=== PATIENT | female | born 2000 | race Caucasian/White ===

== ENCOUNTER 2024-12-04 10:03 | Outpatient (AMB) | payer OTHER, SELFPAY ==
--- NOTE | 2024-12-04 10:03 | MHC.OFFVIS ---
Vital Signs 12/04/24 10:11 Height 5 ft 4 in Weight 145 lb BMI 24.9 BP 142/81 H Blood Pressure Location Rt brachial Position Sitting Pulse 68 Intake Visit Reasons: worsening pain unilateral inguinal hernia Intake Note: Patient referred by pcp Dr. Fuad Power for Unilateral inguinal hernia. Patient c/o: worsening pain on LLQ. Lump first noticed 2yrs ago. Lt leg feels numb. Reports shooting pain down leg. Was told this might be related to thyroid. 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 He is increasing over the last several months and it has become more symptomatic. She was recently seen emergency department and presents here for further evaluation. She otherwise tolerating a diet. She has regular bowel habits. Patient was fairly active. Chart was reviewed and patient evaluated [facility] Medical History (Updated 12/04/24 @ 10:09 by TORSTEN Ghosh) HTN in , chronic Surgical History (Updated 12/04/24 @ 10:23 by Jf Gilliam MD) [place] teeth extracted Social History (Updated 12/04/24 @ 10:09 by TORSTEN Ghosh) Alcohol intake: never Patient Tobacco Use Status: Never used Tobacco Physical Exam Vital Signs: Last Vital Signs Pulse 68 12/04/24 10:11 BP 142/81 H 12/04/24 10:11 BMI result Body Mass Index 24.9 Chest Other: Chest breath sounds bilaterally, HS 1 in 2 GI Other: Patient was examined both supine and standing with Valsalva. Abdomen soft, moderately corpulent, benign. Striae. Right groin negative. Left groin demonstrates a reducible left femoral hernia. No evidence of inguinal hernia. Assessment & Plan Assessment & Plan (1) Left femoral hernia without obstruction or gangrene: Code(s): K41.90 - Unilateral femoral hernia, without obstruction or gangrene, not specified as recurrent Category: Surgical Plan Findings were reviewed with the patient. I recommend she undergo repair of this femoral hernia because of the potential risk for incarcerated and strangulation at these hernias on notorious for. Risks, benefits, alternatives of the procedure (left open femoral hernia repair with mesh) reviewed with the patient and included but not limited to bleeding, infection, recurrence, numbness, pain, scarring the patient wished to proceed. All questions answered. Arrangements were made for this on a day which is convenient for her. Coding Level of Care Code New Pt Level 5 (88575) Diagnoses Left femoral hernia without obstruction or gangrene K41.90
[2024-12-04 10:11] VITALS: BP 142/81; PULSE 68; BMI 24.9
== END 2024-12-04 10:24 | disposition home or self-care (01) ==
PROVIDERS: PCP Family Medicine; Visit Provider Surgery
DX: K41.90 Unilateral femoral hernia, without obstruction or gangrene, not specified as recurrent (principal)
CPT/HCPCS: 99204

== ENCOUNTER → 2024-12-20 08:29 | Outpatient (BNV) | payer OTHER, SELFPAY | PROVIDERS: PCP Family Medicine; Visit Provider Surgery | DX: K41.90 Unilateral femoral hernia, without obstruction or gangrene, not specified as recurrent (principal) | CPT/HCPCS: 49505 ==

== ENCOUNTER 2024-12-30 10:39 | Outpatient (AMB) | payer OTHER, SELFPAY ==
--- NOTE | 2024-12-30 10:44 | MHC.OFFVIS ---
Intake Visit Reasons: s/p left femoral hernia w/mesh Intake Note: Patient here s/p left inguinal herniorrhaphy. Reports incisions healing well. Patient c/o: no longer taking rx pain meds. Surgery: 12-20-2024 Social Director Required: No Accompanied by: Self / Same As Patient Allergies No Known Allergies Allergy (Verified 12/30/24 10:44) HPI Comments Details: Patient presents for follow-up. She has been doing well. She is tolerating a diet. He is having regular bowel habits. She is slowly increasing arterial level. Incisional discomfort is improving. She had some swelling at the hernia site which she says is also decreasing daily. [facility] Medical History (Updated 12/04/24 @ 10:09 by TORSTEN Ghosh) HTN in , chronic Surgical History (Updated 12/30/24 @ 10:58 by Jf Gilliam MD) Left femoral hernia without obstruction or gangrene (12/20/24) [place] teeth extracted Social History (Updated 12/04/24 @ 10:09 by TORSTEN Ghosh) Alcohol intake: never Patient Tobacco Use Status: Never used Tobacco Physical Exam GI Other: Abdomen is soft. Incision clean dry and intact. Some incisional edema but no evidence of any infection. Assessment & Plan Assessment & Plan (1) Status post inguinal hernia repair using synthetic patch: Code(s): Z98.890 - Other specified postprocedural states; Z87.19 - Personal history of other diseases of the digestive system Category: Medical Plan Patient will be provided are note where she can resume work at light duty for least another 4 weeks time. All questions answered. Patient otherwise follow-up. Coding Level of Care Code Global (48685) Diagnoses Status post inguinal hernia repair using synthetic patch Z98.890; Z87.19
== END 2024-12-30 10:54 | disposition home or self-care (01) ==
PROVIDERS: PCP Family Medicine; Visit Provider Surgery
DX: Z98.890 Other specified postprocedural states (principal); Z87.19 Personal history of other diseases of the digestive system
CPT/HCPCS: 99024